=== PATIENT | male | born 1995 | race Caucasian/White ===

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

== ENCOUNTER 2017-06-16 13:07 | Emergency (ER) | payer OTHER ==
[~2017-06-16] VITALS: Ht 188 cm; Wt 79.2 kg
[2017-06-16 13:14] VITALS: TEMP 36.7; Ht 188 cm; Wt 79.2 kg
[2017-06-16] MEDS ORDERED: SERT25TA PO (13:51)
--- NOTE | 2017-06-16 13:57 | DIAGNOSTIC IMAGING REPORT ---
R KNEE 3 VIEWS CLINICAL HISTORY: Medial right knee pain following injury. COMPARISON: Right knee radiographs November 21, 2015. FINDINGS: Alignment of the right knee is anatomic. There is a moderate size right knee joint effusion. There is a 1.4 cm subchondral focus of irregularity of the medial patella. This is age indeterminate however likely old. No suspicious lesion is present. IMPRESSION: 1. No acute fracture. 2. Moderate size right knee joint effusion. 3. 1.4 cm subchondral focus of irregularity of the medial patella. This is age indeterminate however probably old and and may reflect an osteochondral injury from previous lateral patellar dislocation. Anatomic alignment on current exam. Electronically signed by: Anthony Obrien M.D. 06/16/2017 1:55 PM Dictated Date/Time: 06/16/2017 1:49 PM
[2017-06-16 15:10] VITALS: BP 117/68; PULSE 65; O2SAT 99
--- NOTE | 2017-06-16 17:06 | EMERGENCY ROOM VISIT NOTE ---
History First contact with patient: 13:33 Chief Complaint: KNEEPAIN Stated Complaint: KNEE PAIN History of Present Illness The patient is a 21 year old male who presents to the Emergency Room with complaints of right knee pain. The patient reports that he was in a basketball tournament today and twisted the knee. The patient reports a prior history of patellar dislocations. He was seen by an orthopedic surgeon that performed an MRI, and suggested physical therapy for the knee. The patient did not undergo therapy, and has not had any continued problems with the knee. He did wear a hinged brace for a period of time after his last knee injury. He currently denies any pain extending into the fire leg. He denies paresthesias or numbness of the right foot and toes, and rates his discomfort a 3 out of 10. Review of Systems 10 system review was performed and was negative except for pertinent positives and negatives as indicated in history of present illness Past Medical/Surgical History Medical Problems: (1) Kidney stones Surgical Problems: (1) History of brain surgery Family History No significant family history Social History Smoking Status: Never Smoker Alcohol Use: occasionally Drug Use: none Marital Status: single Occupation Status: [employer] Current/Historical Medications Scheduled Sertraline (Zoloft), 25 MG PO QAM Physical Exam Vital Signs Date Time Temp Pulse Resp B/P (MAP) Pulse Ox O2 Delivery O2 Flow Rate FiO2 06/16/17 15:10 65 15 117/68 99 06/16/17 13:14 36.7 83 18 131/73 99 Room Air Physical Exam CONSTITUTIONAL: Healthy and well nourished. Alert and oriented X 3 with positive affect. Patient does not appear in any acute distress. HEENT: Normocephalic, atraumatic. Pupils equal, round and reactive. NECK: Full active range of motion without discomfort. MUSCULOSKELETAL: Examination of the right knee does not show a mild joint effusion. The patient is tenderness to palpation about the patella. Collateral ligaments are intact with no tenderness to palpation of the joint lines. Negative anterior draw, negative posterior drawer, negative pivot shift. No tenderness to palpation through the hamstrings. Distal pulses are intact. INTEGUMENTARY: No rash or other significant dermatologic conditions noted. NEUROLOGIC: No focal neurologic deficits noted. Right lower extremity is sensory intact. Medical Decision & Procedures ER Provider Diagnostic Interpretation: My interpretation of right knee x-rays does not show any acute fractures or dislocation. A moderate joint effusion is noted. Radiologist report is as follows: R KNEE 3 VIEWS CLINICAL HISTORY: Medial right knee pain following injury. COMPARISON: Right knee radiographs November 21, 2015. FINDINGS: Alignment of the right knee is anatomic. There is a moderate size right knee joint effusion. There is a 1.4 cm subchondral focus of irregularity of the medial patella. This is age indeterminate however likely old. No suspicious lesion is present. IMPRESSION: 1. No acute fracture. 2. Moderate size right knee joint effusion. 3. 1.4 cm subchondral focus of irregularity of the medial patella. This is age indeterminate however probably old and and may reflect an osteochondral injury from previous lateral patellar dislocation. Anatomic alignment on current exam. ED Course Patient history and physical exam were performed. Nurse's notes were reviewed. Vital signs were reviewed and were normal. The patient refused any analgesics on initial exam. X-rays of the right knee shows a joint effusion without any obvious fractures or dislocations. The patient was offered a knee immobilizer but refused. Patient was dispensed crutches, and instructed to remain limited weightbearing. The patient was encouraged to follow-up with orthopedics if symptoms are not improving within the next week. He was encouraged to avoid sports or other physical activities that involve a lot of kneeling, squatting or flexion of the knees. The patient was happy with plan of care, voiced understanding of all discharge instructions, and rated his overall discomfort a 3 out of 10 at the time of discharge. Medical Decision Based on physical exam findings, I high suspect that the patient suffered a patellar subluxation/dislocation. It is currently reduced. The patient refused any immobilizer. He was encouraged to limit activities for now. Other internal joint derangement or occult fractures cannot be ruled out Medication Reconcilliation Current Medication List: was personally reviewed by me Blood Pressure Screening Patient's blood pressure: Normal blood pressure Impression Primary Impression: Closed dislocation of right patella Departure Information Referrals No Doctor, Assigned (PCP) Patient Instructions My [facility] Problem Qualifiers Primary Impression: Closed dislocation of right patella Encounter type: initial encounter Qualified Codes: S83.004A - Unspecified dislocation of right patella, initial encounter
== END 2017-06-16 15:10 | disposition home or self-care (01) ==
LOC: C.EDB 13:08 → C.EDD 15:10
DX: S83.004A Unspecified dislocation of right patella, initial encounter (principal); X50.9XXA Other and unspecified overexertion or strenuous movements or postures, initial encounter; Y93.67 Activity, basketball; M25.461 Effusion, right knee; Z87.442 Personal history of urinary calculi